=== PATIENT | female | born 1965 | race African-American/Black ===

== ENCOUNTER 2017-08-02 17:31 | Emergency (ER) | payer MEDICARE, MEDICAID ==
[~2017-08-02] VITALS: Ht 175.3 cm; Wt 79.0 kg
[2017-08-02] MEDS ORDERED: FOLIC ACID 1 MG, THIAMINE HCL 100 MG, MVI, ADULT NO.1 10 ML in DEXTROSE 5% WATER 1,000 ML IV ONE ×4 (18:45)
[2017-08-02] MEDS ORDERED: LORAZEPAM 2MG/ML CPJ IV ONE (18:45)
[2017-08-02] MEDS ORDERED: THIAMINE HCL 100 MG in SODIUM CHLORIDE 0.9% 49 ML IV ONE (18:45)
[2017-08-02] MEDS ORDERED: TETANUS, DIPHTHERIA, PERTUSSIS VAC/PF 0.5ML (>7YR OLD) IM ONE (18:45)
[2017-08-02] MEDS ORDERED: CEFAZOLIN 1000MG PREMIX 50 ML IV ONE (18:45)
[2017-08-02] MEDS ORDERED: BACITRACIN ZINC OINT UDPKT TOP ONE (18:45)
[2017-08-02 19:49] LABS: BASOPHILS % 0.8 % (0.0-2.0); EOSINOPHILS % 0.2 % (0.0-5.0); HEMATOCRIT. 29.5 % (36.0-48.0); HEMOGLOBIN. 9.5 g/dL (12.0-16.0); MEAN CORPUSCULAR HEMOGLOBIN 22.6 pg (28.0-32.0); MEAN CORPUSCULAR VOLUME 70.6 fL (81.0-99.0); MEAN PLATELET VOLUME 8.3 fl (7.4-10.4); MONOCYTES % 10.7 % (2.0-8.0); NEUTROPHILS % 50.3 % (40.0-76.0); PLATELET 328 x1000/uL (130-400); RED BLOOD CELL COUNT 4.18 mill/uL (4.2-5.4); RED CELL DISTRIBUTION WIDTH 19.6 % (11.6-14.6)
[2017-08-02 19:53] LABS: CHLORIDE 109 mEq/L (98-107)
[2017-08-02 19:57] LABS: HCG SCREEN NEGATIVE
[2017-08-02 19:59] LABS: CARBON DIOXIDE 26 mEq/L (21-32)
[2017-08-02 20:07] LABS: ETHANOL BLOOD 348 mg/dL
[2017-08-02] MEDS ORDERED: KETOROLAC 30MG/ML VIAL IV ONE (23:00)
[2017-08-02 23:22] LABS: *AMPHETAMINES SCREEN URINE NEGATIVE (NEGATIVE); *BARBITURATES SCREEN URINE NEGATIVE (NEGATIVE); *BENZODIAZEPINES SCREEN URINE NEGATIVE (NEGATIVE); *COCAINE SCREEN URINE NEGATIVE (NEGATIVE); CANNABINOID URINE SCREEN PRESUMTIVE POSITIVE (NEGATIVE); METHADONE URINE SCREEN NEGATIVE (NEGATIVE); OPIATES URINE SCREEN NEGATIVE (NEGATIVE); PHENCYCLIDINE URINE SCREEN NEGATIVE (NEGATIVE)
[2017-08-02 23:39] VITALS: BP 105/68
== END 2017-08-02 23:42 | disposition home or self-care (01) ==
LOC: ER 18:22
DX: T51.0X1A Toxic effect of ethanol, accidental (unintentional), initial encounter (principal); G92 Toxic encephalopathy; S00.81XA Abrasion of other part of head, initial encounter; S00.31XA Abrasion of nose, initial encounter; K21.9 Gastro-esophageal reflux disease without esophagitis; I10 Essential (primary) hypertension; Z78.1 Physical restraint status; W01.0XXA Fall on same level from slipping, tripping and stumbling without subsequent striking against object, initial encounter; Y93.89 Activity, other specified; Y92.018 Other place in single-family (private) house as the place of occurrence of the external cause
CPT/HCPCS: 36415; 70450; 70486; 72125; 80053; 80305; 84703; 85025; 90471; 90715; 96365; 96375; 99285; G0482; J0690; J1885; J2060; J3411; J3490; J7070

== ENCOUNTER 2018-03-21 04:16 | Emergency (ER) | payer MEDICAID, MEDICARE ==
[~2018-03-21] VITALS: Ht 157.5 cm; Wt 84.0 kg
[2018-03-21] MEDS ORDERED: KETOROLAC 60MG/2ML VIAL IM ONE (09:45)
[2018-03-21 10:36] VITALS: BP 134/68
== END 2018-03-21 10:50 | disposition home or self-care (01) ==
LOC: ER 04:22
DX: M25.512 Pain in left shoulder (principal); I10 Essential (primary) hypertension; K21.9 Gastro-esophageal reflux disease without esophagitis
CPT/HCPCS: 73030; 96372; 99284; J1885

== ENCOUNTER 2019-09-29 15:50 | Inpatient (IN) | payer MEDICARE, MEDICAID ==
[~2019-09-29] VITALS: Ht 167.6 cm; Wt 102.5 kg
[2019-09-29] MEDS ORDERED: ONDANSETRON HCL 4MG/2ML INJ IV STA (15:55)
[2019-09-29 16:54] LABS: BASOPHILS % 0.3 % (0.0-2.0); EOSINOPHILS % 1.8 % (0.0-5.0); HEMATOCRIT. 34.6 % (36.0-48.0); HEMOGLOBIN. 11.5 g/dL (12.0-16.0); LYMPHOCYTES % 33.2 % (20.0-50.0); MEAN CORPUSCULAR HEMOGLOBIN 26.1 pg (28.0-32.0); MEAN CORPUSCULAR VOLUME 78.3 fL (81.0-99.0); MEAN PLATELET VOLUME 9.6 fl (7.4-10.4); MONOCYTES % 6.1 % (2.0-8.0); NEUTROPHILS % 58.6 % (40.0-76.0); PLATELET 293 x1000/uL (130-400); RED BLOOD CELL COUNT 4.42 mill/uL (4.2-5.4); RED CELL DISTRIBUTION WIDTH 18.3 % (11.6-14.6)
[2019-09-29 16:59] LABS: CHLORIDE 106 mEq/L (98-107)
[2019-09-29] MEDS ORDERED: ASPIRIN 81MG EC TABLET PO ONE (17:00)
[2019-09-29 17:03] LABS: ETHANOL BLOOD < 10 mg/dL; PARTIAL THROMBOPLASTIN TIME 24.7 sec (23.4-31.0)
[2019-09-29 17:06] LABS: LDL CHOLESTEROL 126 mg/dL (5-100)
[2019-09-29 19:14] LABS: CLARITY URINE CLEAR (CLEAR); COLOR URINE YELLOW (YELLOW); KETONES URINE NEGATIVE (NEGATIVE); LEUKOCYTE ESTERASE URINE NEGATIVE (NEGATIVE); NITRITE URINE NEGATIVE (NEGATIVE); OCCULT BLOOD URINE NEGATIVE (NEGATIVE); PH URINE 6.5 (4.5-8.0); PROTEIN URINE NEGATIVE (NEGATIVE); SPECIFIC GRAVITY URINE 1.055 (1.005-1.030); UROBILINOGEN URINE 0.2 E.U./dL (0.2-1.0)
[2019-09-29 19:24] LABS: CANNABINOID URINE SCREEN NEGATIVE (NEGATIVE); PHENCYCLIDINE URINE SCREEN NEGATIVE (NEGATIVE)
[2019-09-29 19:25] LABS: *AMPHETAMINES SCREEN URINE NEGATIVE (NEGATIVE); *BARBITURATES SCREEN URINE NEGATIVE (NEGATIVE); *BENZODIAZEPINES SCREEN URINE NEGATIVE (NEGATIVE); *COCAINE SCREEN URINE NEGATIVE (NEGATIVE); METHADONE URINE SCREEN NEGATIVE (NEGATIVE); OPIATES URINE SCREEN NEGATIVE (NEGATIVE)
[2019-09-29 20:30] VITALS: BP 133/79
[2019-09-29 21:01] VITALS: BP 133/79
[2019-09-29] MEDS ORDERED: PNEUMOCOCCAL 23-VAL P-SAC VAC 0.5 ML IM ONE (21:15)
[2019-09-29] MEDS ORDERED: INFLUENZA VIRUS VACCINE(AFLURIA) 0.5ML SYR IM ONE (21:15)
[2019-09-29] MEDS ORDERED: CLONIDINE 0.2MG TABLET PO PRN (22:00)
[2019-09-29] MEDS ORDERED: IPRATROPIUM/ALBUTEROL 0.5-3(2.5)MG/3ML NEB HHN PRN (22:00)
[2019-09-29] MEDS ORDERED: HYDROCODONE/ACETAMINOPHEN 5/325MG TABLET PO PRN (22:00)
[2019-09-30] VITALS: BP 130/56
[2019-09-30 04:00] VITALS: BP 114/65
[2019-09-30 08:10] VITALS: BP 132/80
[2019-09-30] MEDS: SODIUM CHLORIDE 0.9% 1,000 ML IV SCH (08:10)
[2019-09-30] MEDS: ASPIRIN 81MG TABLET PO SCH (08:11)
[2019-09-30] MEDS: ENOXAPARIN 30MG/0.3ML SYR SUBCUT SCH ×2 (08:12→20:39)
[2019-09-30] MEDS: ACETAMINOPHEN 325MG TABLET PO PRN ×3 (08:32→23:55)
[2019-09-30 08:36] LABS: BASOPHILS % 0.4 % (0.0-2.0); EOSINOPHILS % 1.4 % (0.0-5.0); HEMATOCRIT. 33.5 % (36.0-48.0); HEMOGLOBIN. 10.9 g/dL (12.0-16.0); LYMPHOCYTES % 30.7 % (20.0-50.0); MEAN CORPUSCULAR HEMOGLOBIN 25.6 pg (28.0-32.0); MEAN CORPUSCULAR VOLUME 78.5 fL (81.0-99.0); MEAN PLATELET VOLUME 9.8 fl (7.4-10.4); MONOCYTES % 7.9 % (2.0-8.0); NEUTROPHILS % 59.6 % (40.0-76.0); PLATELET 286 x1000/uL (130-400); RED BLOOD CELL COUNT 4.27 mill/uL (4.2-5.4); RED CELL DISTRIBUTION WIDTH 18.3 % (11.6-14.6)
[2019-09-30] MEDS ORDERED: ENOXAPARIN 40MG/0.4ML SYR SUBCUT SCH (09:00)
[2019-09-30 10:43] LABS: CHLORIDE 106 mEq/L (98-107)
[2019-09-30 12:30] VITALS: BP 118/78
[2019-09-30] MEDS ORDERED: PANTOPRAZOLE 40MG DR TABLET PO NR (14:45)
[2019-09-30 16:30] VITALS: BP 130/62
[2019-09-30 20:00] VITALS: BP 126/68
[2019-09-30] MEDS: DEXAMETHASONE 2MG TABLET PO SCH (20:39)
[2019-09-30] MEDS: FAMOTIDINE 20MG TABLET PO SCH (20:39)
[2019-09-30] MEDS ORDERED: ATORVASTATIN CALCIUM 40MG TABLET PO SCH (21:00)
[2019-09-30] MEDS ORDERED: ERYTHROMYCIN BASE 0.5% OPHTH OINT 3.5GM LEFTEYE SCH (21:00)
[2019-09-30] MEDS: POLYVINYL ALCOHOL OPHTH DROPS 15ML LEFTEYE SCH (23:55)
[2019-10-01] VITALS: BP 148/68
[2019-10-01] MEDS: SODIUM CHLORIDE 0.9% 1,000 ML IV SCH (01:06)
[2019-10-01 04:00] VITALS: BP 132/83
[2019-10-01] MEDS: POLYVINYL ALCOHOL OPHTH DROPS 15ML LEFTEYE SCH ×2 (06:19→12:00)
[2019-10-01] MEDS: ACETAMINOPHEN 325MG TABLET PO PRN (06:20)
[2019-10-01] MEDS ORDERED: PANTOPRAZOLE 40MG DR TABLET PO SCH (06:45)
[2019-10-01 07:32] LABS: BASOPHILS % 0.2 % (0.0-2.0); EOSINOPHILS % 0.1 % (0.0-5.0); HEMATOCRIT. 33.2 % (36.0-48.0); HEMOGLOBIN. 10.9 g/dL (12.0-16.0); LYMPHOCYTES % 12.2 % (20.0-50.0); MEAN CORPUSCULAR HEMOGLOBIN 25.7 pg (28.0-32.0); MEAN CORPUSCULAR VOLUME 78.4 fL (81.0-99.0); MEAN PLATELET VOLUME 9.5 fl (7.4-10.4); MONOCYTES % 4.1 % (2.0-8.0); NEUTROPHILS % 83.4 % (40.0-76.0); PLATELET 247 x1000/uL (130-400); RED BLOOD CELL COUNT 4.24 mill/uL (4.2-5.4); RED CELL DISTRIBUTION WIDTH 17.9 % (11.6-14.6)
[2019-10-01 07:35] LABS: CHLORIDE 108 mEq/L (98-107)
[2019-10-01 08:00] VITALS: BP 116/61
[2019-10-01] MEDS: FAMOTIDINE 20MG TABLET PO SCH (10:36)
[2019-10-01] MEDS: ASPIRIN 81MG TABLET PO SCH (10:36)
[2019-10-01] MEDS: DEXAMETHASONE 2MG TABLET PO SCH (10:36)
[2019-10-01] MEDS: ENOXAPARIN 30MG/0.3ML SYR SUBCUT SCH (10:37)
[2019-10-01 12:00] VITALS: BP 115/70
[2019-10-01 13:21] VITALS: BP 148/56
== END 2019-10-01 13:45 | disposition home or self-care (01) | DRG 74 ==
LOC: ER 15:50 → 5WST 17:13 → EDBEDREQ 17:38 → EDBEDREQSVC 17:38 → ENRESERV 18:20
PROVIDERS: ADMIT Internal Medicine; ATTEND Internal Medicine
DX: G51.0 Bell's palsy (principal); E66.01 Morbid (severe) obesity due to excess calories; E78.5 Hyperlipidemia, unspecified; I10 Essential (primary) hypertension; K21.9 Gastro-esophageal reflux disease without esophagitis; K29.70 Gastritis, unspecified, without bleeding; Z68.36 Body mass index [BMI] 36.0-36.9, adult; Z87.891 Personal history of nicotine dependence; Z91.19 Patient's noncompliance with other medical treatment and regimen
CPT/HCPCS: 36415; 70496; 70551; 71045; 80048; 80305; 80320; 81003; 82962; 83721; 83880; 84484; 86850; 86900; 90686; 90732; 92610; 93005; 96374; 99291; C1893; J1650; J2405; J7030; J8540; G0480

== ENCOUNTER 2024-08-10 17:26 | Inpatient (IN) | payer BC, MEDICAID, MEDICARE ==
[~2024-08-10] VITALS: Ht 160 cm; Wt 72.6 kg
[2024-08-10 18:37] LABS: CLARITY URINE CLEAR (CLEAR); COLOR URINE YELLOW (YELLOW); GLUCOSE URINE NEGATIVE (NEGATIVE); KETONES URINE NEGATIVE (NEGATIVE); LEUKOCYTE ESTERASE URINE NEGATIVE (NEGATIVE); NITRITE URINE NEGATIVE (NEGATIVE); OCCULT BLOOD URINE NEGATIVE (NEGATIVE); PH URINE 5.5 (4.5-8.0); PROTEIN URINE 1+ (NEGATIVE); SPECIFIC GRAVITY URINE 1.008 (1.005-1.030)
[2024-08-10 18:38] LABS: DIFFERENTIAL COMMENT 1; HEMATOCRIT. 39.6 % (36.0-48.0); HEMOGLOBIN. 13.3 g/dL (12.0-16.0); MEAN CORPUSCULAR HEMOGLOBIN 31.2 pg (28.0-32.0); MEAN CORPUSCULAR HGB CONC 33.5 g/dL (31.0-37.0); MEAN PLATELET VOLUME 9.7 fl (7.4-10.4); PLATELET 242 x1000/uL (130-400); RED BLOOD CELL COUNT 4.26 mill/uL (4.2-5.4); RED CELL DISTRIBUTION WIDTH 18.3 % (11.6-14.6); WHITE BLOOD COUNT 5.1 x1000/uL (4.5-11.0)
[2024-08-10 18:51] LABS: CHLORIDE 99 mEq/L (98-107); POTASSIUM 4.8 mEq/L (3.5-5.1); SODIUM 131 mEq/L (136-145)
[2024-08-10 18:52] LABS: CARBON DIOXIDE 22 mEq/L (21-32)
[2024-08-10 18:53] LABS: CALCIUM 10.6 mg/dL (8.7-10.4)
[2024-08-10 18:57] LABS: GLUCOSE 99 mg/dL (70-105)
[2024-08-10] MEDS: IPRATROPIUM BROMIDE (0.02%) 0.5MG/2.5ML NEB HHN NR (18:57)
[2024-08-10] MEDS: ALBUTEROL (0.083%) 2.5MG/3ML NEB HHN NR (18:57)
[2024-08-10 18:58] LABS: UREA NITROGEN BLOOD 20 mg/dL (9-23)
[2024-08-10 18:59] LABS: ALANINE AMINOTRANSFERASE 130 IU/L (10-49); ALBUMIN 3.8 g/dL (3.2-4.8); ASPARTATE AMINOTRANSFERASE 988 IU/L (<34); TROPONIN I HIGH SENSITIVITY 31 ng/L (3.0-34)
[2024-08-10 19:00] LABS: BILIRUBIN DIRECT 1.6 mg/dL (<=3.0); BILIRUBIN TOTAL 2.4 mg/dL (0.1-1.0); D-DIMER 12.27 mg/L FEU (<0.50); INR 1.2; PROTEIN TOTAL 6.6 g/dL (6.0-8.3); PROTHROMBIN TIME 13.3 sec (9.6-11.0)
[2024-08-10 19:07] LABS: BACTERIA URINE 1+; RBC URINE 0-2 /hpf (0-2); SQUAMOUS EPITHELIAL CELL URINE 2+ /lpf (RARE/1+); WBC URINE 0-2 /hpf (0-2)
[2024-08-10 19:14] LABS: PLATELET ESTIMATE NORMAL
[2024-08-10] MEDS: ONDANSETRON HCL 4MG/2ML INJ IV NR (19:34)
[2024-08-10] MEDS: MORPHINE SULFATE 4 MG/ML INJ (FOR IV/IM USE) IV ONE (19:34)
[2024-08-10] MEDS: METHYLPREDNISOLONE SOD SUCC 125MG/2ML (ACT-O-VIAL) IV NR (19:34)
[2024-08-10] MEDS: SODIUM CHLORIDE 0.9% 1,000 ML IV ONE (20:13)
[2024-08-10] MEDS: LEVOFLOXACIN 750MG PREMIX 150 ML IV NR (20:13)
[2024-08-10] MEDS: METRONIDAZOLE 500 MG PREMIX 100 ML IV ONE (21:58)
[2024-08-10 23:29] VITALS: BP 176/87; PULSE 85; RESP 18; TEMP 36.696
[2024-08-10] MEDS ORDERED: ZOLPIDEM TARTRATE 5MG TABLET PO PRN (23:45)
[2024-08-10] MEDS ORDERED: DOCUSATE SODIUM 100MG CAPSULE PO PRN (23:45)
[2024-08-10] MEDS: METHYLPREDNISOLONE SOD SUCC 40MG/ML (ACT-O-VIAL) IV SCH (23:50)
[2024-08-10] MEDS: DEXT 5%/0.45% NACL 1000ML 1,000 ML IV SCH (23:50)
[2024-08-11] VITALS (8 sets, daily range): BP systolic 96–132; BP diastolic 56–79; PULSE 65–82; RESP 16–20; TEMP 36.114–36.6696; O2SAT 95–100
[2024-08-11] MEDS: MORPHINE SULFATE 2 MG/ML INJ (NOT FOR IM USE) IV PRN
[2024-08-11 00:32] LABS: *AMPHETAMINES SCREEN URINE NEGATIVE (NEGATIVE); *BARBITURATES SCREEN URINE NEGATIVE (NEGATIVE); *BENZODIAZEPINES SCREEN URINE NEGATIVE (NEGATIVE); *COCAINE SCREEN URINE NEGATIVE (NEGATIVE); CANNABINOID URINE SCREEN NEGATIVE (NEGATIVE); METHADONE URINE SCREEN NEGATIVE (NEGATIVE); OPIATES URINE SCREEN PRESUMPTIVE POSITIVE (NEGATIVE); PHENCYCLIDINE URINE SCREEN NEGATIVE (NEGATIVE)
[2024-08-11 00:33] LABS: ECSTASY MDMA SCREEN URINE NEGATIVE (NEGATIVE)
[2024-08-11] MEDS: PIPERACILLIN/TAZO 3.375G/50ML 50 ML IV SCH (05:03)
[2024-08-11 07:25] LABS: CHLORIDE 100 mEq/L (98-107); POTASSIUM 4.8 mEq/L (3.5-5.1); SODIUM 135 mEq/L (136-145)
[2024-08-11 07:26] LABS: CALCIUM 10.1 mg/dL (8.7-10.4); CARBON DIOXIDE 26 mEq/L (21-32)
[2024-08-11 07:28] LABS: CREATINE KINASE MB FRACTION < 0.5 ng/mL (0.5-3.6)
[2024-08-11 07:29] LABS: TROPONIN I HIGH SENSITIVITY 24 ng/L (3.0-34)
[2024-08-11 07:31] LABS: CREATININE 1.3 mg/dL (0.6-1.0); GLUCOSE 147 mg/dL (70-105); UREA NITROGEN BLOOD 22 mg/dL (9-23)
[2024-08-11 07:32] LABS: CREATINE KINASE 64 IU/L (34-145)
[2024-08-11 07:34] LABS: BASOPHILS % 0.1 % (0.0-2.0); HEMATOCRIT. 37.3 % (36.0-48.0); HEMOGLOBIN. 12.1 g/dL (12.0-16.0); LYMPHOCYTES % 12.3 % (20.0-50.0); MEAN CORPUSCULAR HEMOGLOBIN 30.4 pg (28.0-32.0); MEAN CORPUSCULAR HGB CONC 32.4 g/dL (31.0-37.0); MEAN CORPUSCULAR VOLUME 93.7 fL (81.0-99.0); MEAN PLATELET VOLUME 9.6 fl (7.4-10.4); MONOCYTES % 7.7 % (2.0-8.0); NEUTROPHILS % 79.9 % (40.0-76.0); PLATELET 170 x1000/uL (130-400); RED BLOOD CELL COUNT 3.98 mill/uL (4.2-5.4); RED CELL DISTRIBUTION WIDTH 18.4 % (11.6-14.6); WHITE BLOOD COUNT 3.2 x1000/uL (4.5-11.0)
[2024-08-11 07:50] LABS: HEPATITIS B SURFACE ANTIGEN NEGATIVE (Negative)
[2024-08-11 08:11] LABS: HEPATITIS C AB NON REACTIVE (Neg) (Negative)
[2024-08-11] MEDS: ENOXAPARIN 40MG/0.4ML SYR SUBCUT SCH (08:47)
[2024-08-11] MEDS ORDERED: LIDOCAINE HCL 1% 10 MG/ML 10ML VIAL ONE (10:52)
[2024-08-11] MEDS: IPRATROPIUM/ALBUTEROL 0.5-3(2.5)MG/3ML NEB HHN SCH (12:15)
[2024-08-11] MEDS ORDERED: IOHEXOL-350 100 ML BOTTLE ONE (12:37)
[2024-08-11] MEDS: ACETAMINOPHEN 325MG TABLET PO PRN (13:47)
[2024-08-11] MEDS: ONDANSETRON HCL 4MG/2ML INJ IV PRN (15:44)
[2024-08-11 17:02] LABS: CREATINE KINASE MB FRACTION < 0.5 ng/mL (0.5-3.6); TROPONIN I HIGH SENSITIVITY 25 ng/L (3.0-34)
[2024-08-11 17:03] LABS: CREATINE KINASE 65 IU/L (34-145)
[2024-08-12] VITALS (9 sets, daily range): BP systolic 101–126; BP diastolic 51–66; PULSE 71–84; RESP 16–20; TEMP 36.16956–37.16964; O2SAT 97–100
[2024-08-12 15:30] LABS: BODY FLUID MONOCYTES 4 %; BODY FLUID RBC 2265 /cu mm (0-2000); BODY FLUID WBC 960 /cu mm (0-200)
[2024-08-20] MEDS ORDERED: OMEP20TA23 PO (01:36)
== END 2024-08-12 17:15 | disposition home or self-care (01) | DRG 191 ==
LOC: ER 17:26 → 7WST 22:23 → ER 23:19
PROVIDERS: ADMIT Internal Medicine; ATTEND Internal Medicine
PROC: 05H633Z Insertion of Infusion Device into Left Subclavian Vein, Percutaneous Approach (ICD-10-PCS; 2024-08-11)
PROC: B547ZZA Ultrasonography of Left Subclavian Vein, Guidance (ICD-10-PCS; 2024-08-11)
PROC: 0W993ZZ Drainage of Right Pleural Cavity, Percutaneous Approach (ICD-10-PCS; principal; 2024-08-12)
DX: J44.1 Chronic obstructive pulmonary disease with (acute) exacerbation (principal); C79.89 Secondary malignant neoplasm of other specified sites; K57.32 Diverticulitis of large intestine without perforation or abscess without bleeding; I10 Essential (primary) hypertension; Z85.3 Personal history of malignant neoplasm of breast; Z95.828 Presence of other vascular implants and grafts
CPT/HCPCS: 32555; 36415; 36573; 71045; 71275; 74176; 80048; 80076; 80305; 81003; 82550; 82553; 83880; 84145; 84484; 85025; 85379; 86705; 87340; 88108; 88312; 93005; 93970; 94640; 99285; C1725; J1650; J1956; J2270; J2405; J2543; J2919; J2920; J3490; Q9967